=== PATIENT | male | born 1970 | race Caucasian/White ===

== ENCOUNTER → 2018-10-06 | Outpatient (CLI) | payer MEDICAID | LOC: CIMAGING 10:15 | PROVIDERS: ATTEND Family Medicine | DX: S82.491A Other fracture of shaft of right fibula, initial encounter for closed fracture (principal) | CPT/HCPCS: 73590-PO; 73600-PO ==

== ENCOUNTER → 2018-10-16 | Outpatient (CLI) | payer MEDICAID | LOC: CIMAGING 12:02 | PROVIDERS: ATTEND Family Medicine | DX: S82.401D Unspecified fracture of shaft of right fibula, subsequent encounter for closed fracture with routine healing (principal) | CPT/HCPCS: 73590-PO ==

== ENCOUNTER → 2019-01-20 | Outpatient (CLI) | payer MEDICAID | LOC: CIMAGING 10:59 | PROVIDERS: ATTEND Family Medicine | DX: S82.491D Other fracture of shaft of right fibula, subsequent encounter for closed fracture with routine healing (principal) | CPT/HCPCS: 73590-PO ==